=== PATIENT | male | born 1995 | race Caucasian/White ===

== ENCOUNTER 2017-12-23 11:19 | Emergency (ER) | payer OTHER ==
[2017-12-23 11:32] VITALS: TEMP 97.8
[2017-12-23] MEDS ORDERED: SODIUM CHLORIDE 0.9% 1,000 ML IV STA (11:51)
[2017-12-23] MEDS ORDERED: KETOROLAC 30 MG/ML 1 ML VIAL IVP STA (11:51)
--- NOTE | 2017-12-23 11:51 | ED ---
Abdominal Pain HPI - General Chief Complaint: Abdominal Pain Stated Complaint: abdominal pain Time Seen by Provider: 12/23/17 11:44 Source: patient, RN notes reviewed Mode of arrival: ambulatory Limitations: no limitations - History of Present Illness Initial Comments: 22-year-old male present emergency department with chief complaint of sudden onset of severe abdominal pain. Patient states that he was on a riding lawn more for approximately 90 minutes when he felt that his "stomach exploded". Patient states that the pain is mostly in his upper abdomen and is nonradiating. He denies any nausea, vomiting, diarrhea, constipation, chest pain or shortness breath. He denies any trauma. He states that he does not take any current medications he's had no prior GI disorders. Patient states that he feels better if he bent over is worse if he lays flat or stands up straight. Patient has normal drug ALLERGIES no prior abdominal surgeries. - Related Data Previous Rx's Medication Instructions Recorded Omeprazole 40 mg PO DAILY #14 capsule. 12/23/17 Allergies Allergy/AdvReac Type Severity Reaction Status Date / Time No Known Allergies Allergy Verified 12/23/17 11:28 Review of Systems ROS Statement: Those systems with pertinent positive or pertinent negative responses have been documented in the HPI. ROS Other: All systems not noted in ROS Statement are negative. Past Medical History Past Medical History: No Reported History History of Any Multi-Drug Resistant Organisms: None Reported Past Surgical History: No Surgical Hx Reported Past Psychological History: No Psychological Hx Reported Smoking Status: Current every day smoker Past Alcohol Use History: Daily Past Drug Use History: Marijuana General Exam Limitations: no limitations General appearance: alert, in no apparent distress Head exam: Present: atraumatic, normocephalic, normal inspection Respiratory exam: Present: normal lung sounds bilaterally. Absent: respiratory distress, wheezes, rales, rhonchi, stridor Cardiovascular Exam: Present: regular rate, normal rhythm, normal heart sounds. Absent: systolic murmur, diastolic murmur, rubs, gallop, clicks GI/Abdominal exam: Present: soft, tenderness (Moderate epigastric tenderness, upper abdominal tenderness), normal bowel sounds. Absent: distended, guarding, rebound, rigid Back exam: Absent: CVA tenderness (R), CVA tenderness (L) Skin exam: Present: warm, dry, intact, normal color. Absent: rash Course Vital Signs 12/23/17 12/23/17 11:28 13:15 Temperature 97.8 F Pulse Rate 86 66 Respiratory 18 20 Rate Blood Pressure 126/68 117/66 O2 Sat by Pulse 100 99 Oximetry Medical Decision Making - Medical Decision Making This is a 22-year-old male presented for abdominal pain which was sudden onset. Patient felt that his stomach is bloated patient had lab work, CT. He was given medications emergency room which have helped. Patient may have some underlying gastritis secondary to on take is advised to stop drinking. He'll be started on omeprazole 40 mg to help close follow-up. - Lab Data Result diagrams: 12/23/17 12:22 12/23/17 12:22 Lab Results 12/23/17 12/23/17 12/23/17 Range/Units 12:10 12:22 12:22 WBC 11.6 H (3.8-10.6) k/uL RBC 5.39 (4.30-5.90) m/uL Hgb 16.8 (13.0-17.5) gm/dL Hct 50.7 (39.0-53.0) % MCV 94.0 (80.0-100.0) fL MCH 31.2 (25.0-35.0) pg MCHC 33.2 (31.0-37.0) g/dL RDW 13.2 (11.5-15.5) % Plt Count 309 (150-450) k/uL Neutrophils % 68 % Lymphocytes % 20 % Monocytes % 8 % Eosinophils % 1 % Basophils % 1 % Neutrophils # 7.9 H (1.3-7.7) k/uL Lymphocytes # 2.3 (1.0-4.8) k/uL Monocytes # 0.9 (0-1.0) k/uL Eosinophils # 0.1 (0-0.7) k/uL Basophils # 0.1 (0-0.2) k/uL PT (9.0-12.0) sec INR (<1.2) APTT (22.0-30.0) sec Sodium 143 (137-145) mmol/L Potassium 4.2 (3.5-5.1) mmol/L Chloride 103 (98-107) mmol/L Carbon Dioxide 25 (22-30) mmol/L Anion Gap 15 mmol/L BUN 13 (9-20) mg/dL Creatinine 0.90 (0.66-1.25) mg/dL Est GFR (CKD-EPI)AfAm >90 (>60 ml/min/1.73 sqM) Est GFR (CKD-EPI)NonAf >90 (>60 ml/min/1.73 sqM) Glucose 91 (74-99) mg/dL Plasma Lactic Acid Lewis (0.7-2.0) mmol/L Calcium 10.4 H (8.4-10.2) mg/dL Total Bilirubin 0.7 (0.2-1.3) mg/dL AST 19 (17-59) U/L ALT 27 (21-72) U/L Alkaline Phosphatase 98 (38-126) U/L Total Protein 8.2 (6.3-8.2) g/dL Albumin 5.1 H (3.5-5.0) g/dL Amylase 56 (30-110) U/L Lipase 49 (23-300) U/L Urine Color Light Yellow Urine Appearance Clear (Clear) Urine pH 7.0 (5.0-8.0) Ur Specific [place] 1.008 (1.001-1.035) Urine Protein Negative (Negative) Urine Glucose (UA) Negative (Negative) Urine Ketones Negative (Negative) Urine Blood Negative (Negative) Urine Nitrite Negative (Negative) Urine Bilirubin Negative (Negative) Urine Urobilinogen <2.0 (<2.0) mg/dL Ur Leukocyte Esterase Negative (Negative) 12/23/17 12/23/17 Range/Units 12:22 12:22 WBC (3.8-10.6) k/uL RBC (4.30-5.90) m/uL Hgb (13.0-17.5) gm/dL Hct (39.0-53.0) % MCV (80.0-100.0) fL MCH (25.0-35.0) pg MCHC (31.0-37.0) g/dL RDW (11.5-15.5) % Plt Count (150-450) k/uL Neutrophils % % Lymphocytes % % Monocytes % % Eosinophils % % Basophils % % Neutrophils # (1.3-7.7) k/uL Lymphocytes # (1.0-4.8) k/uL Monocytes # (0-1.0) k/uL Eosinophils # (0-0.7) k/uL Basophils # (0-0.2) k/uL PT 12.0 (9.0-12.0) sec INR 1.3 H (<1.2) APTT 25.3 (22.0-30.0) sec Sodium (137-145) mmol/L Potassium (3.5-5.1) mmol/L Chloride (98-107) mmol/L Carbon Dioxide (22-30) mmol/L Anion Gap mmol/L BUN (9-20) mg/dL Creatinine (0.66-1.25) mg/dL Est GFR (CKD-EPI)AfAm (>60 ml/min/1.73 sqM) Est GFR (CKD-EPI)NonAf (>60 ml/min/1.73 sqM) Glucose (74-99) mg/dL Plasma Lactic Acid [place] 2.2 H* (0.7-2.0) mmol/L Calcium (8.4-10.2) mg/dL Total Bilirubin (0.2-1.3) mg/dL AST (17-59) U/L ALT (21-72) U/L Alkaline Phosphatase (38-126) U/L Total Protein (6.3-8.2) g/dL Albumin (3.5-5.0) g/dL Amylase (30-110) U/L Lipase (23-300) U/L Urine Color Urine Appearance (Clear) Urine pH (5.0-8.0) Ur Specific [place] (1.001-1.035) Urine Protein (Negative) Urine Glucose (UA) (Negative) Urine Ketones (Negative) Urine Blood (Negative) Urine Nitrite (Negative) Urine Bilirubin (Negative) Urine Urobilinogen (<2.0) mg/dL Ur Leukocyte Esterase (Negative) Disposition Clinical Impression: Abdominal pain, Gastritis Disposition: HOME SELF-CARE Condition: Stable Instructions: Gastritis (ED) Additional Instructions: Please return to the Emergency Department if symptoms worsen or any other concerns. Prescriptions: Omeprazole 40 mg PO DAILY #14 capsule.dr Is patient prescribed a controlled substance at d/c from ED?: No Referrals: Meaghan Avila DO [Primary Care Provider] - 1-2 days Time of Disposition: 13:32
[2017-12-23 12:39] LABS: Basophils # (A) 0.1 k/uL (0-0.2); Basophils % (A) 1 %; Eosinophils # (A) 0.1 k/uL (0-0.7); Eosinophils % (A) 1 %; HCT 50.7 % (39.0-53.0); HGB 16.8 gm/dL (13.0-17.5); Lymphocytes # (A) 2.3 k/uL (1.0-4.8); Lymphocytes % (A) 20 %; MCH 31.2 pg (25.0-35.0); MCHC 33.2 g/dL (31.0-37.0); Mean Platelet Volume 6.8; Monocytes # (A) 0.9 k/uL (0-1.0); Monocytes % (A) 8 %; Neutrophils # (A) 7.9 k/uL (1.3-7.7); Neutrophils % (A) 68 %; Platelet Count 309 k/uL (150-450); RBC 5.39 m/uL (4.30-5.90); RDW 13.2 % (11.5-15.5); WBC 11.6 k/uL (3.8-10.6)
[2017-12-23 12:39] LABS: Appearance,Urine Clear (Clear); Bilirubin,Urine Negative (Negative); Blood,Urine Negative (Negative); Color,Urine Light Yellow; Glucose,Urine (UA) Negative (Negative); Ketones,Urine Negative (Negative); Leukocyte Esterase,Urine Negative (Negative); Nitrite,Urine Negative (Negative); Protein,Urine Negative (Negative); Specific Gravity,Urine 1.008 (1.001-1.035); Urobilinogen,Urine <2.0 mg/dL (<2.0)
[2017-12-23 12:50] LABS: ALT 27 U/L (21-72); AST 19 U/L (17-59); Albumin 5.1 g/dL (3.5-5.0); Alkaline Phosphatase 98 U/L (38-126); Amylase 56 U/L (30-110); Anion Gap 15 mmol/L; Blood Urea Nitrogen 13 mg/dL (9-20); Calcium 10.4 mg/dL (8.4-10.2); Carbon Dioxide 25 mmol/L (22-30); Chloride 103 mmol/L (98-107); Glucose 91 mg/dL (74-99); Lipase 49 U/L (23-300); Potassium 4.2 mmol/L (3.5-5.1); Sodium 143 mmol/L (137-145); Total Bilirubin 0.7 mg/dL (0.2-1.3); Total Protein 8.2 g/dL (6.3-8.2)
[2017-12-23] MEDS ORDERED: SODIUM CHLORIDE 0.9% 1,000 ML IV ONE (12:52)
--- NOTE | 2017-12-23 13:09 | CT ---
EXAMINATION TYPE: CT abdomen pelvis w con DATE OF EXAM: 12/23/2017 REFERENCE: NONE HISTORY: abdominal pain HISTORY: Patient complains of epigastric pain. REFERENCE: NONE CT DLP: 311.1 mGy Automated exposure control for dose reduction was used. TECHNIQUE: Helical acquisition through the abdomen and pelvis was obtained following the oral ingesti on of without Oral Contrast and following intravenous administration of 100 mL of Isovue 300. The zarina a was reformatted in axial, coronal and sagittal projections. FINDINGS: The visualized portions of the lungs are clear. There is no pleural or pericardial fluid. The heart is not enlarged. Within the abdomen, the liver, spleen and gallbladder are normal. Both adrenal glands appear normal. Both kidneys demonstrate function and appear morphologically normal. The pancreas is unremarkable. There is no significant retroperitoneal, iliac or inguinal adenopathy. The bladder is unremarkable. Both large and small bowel appear normal. The appendix is not visualized with certainty. There is no free fluid and no free air identified. No osseous lesion is seen. IMPRESSION: 1. NO ACUTE INFLAMMATORY ABNORMALITY. 2. FAILURE TO VISUALIZE THE APPENDIX.
[2017-12-23 13:16] VITALS: BP 117/66; PULSE 66; RESP 20
[2017-12-23 13:17] LABS: INR 1.3 (<1.2); Partial Thromboplastin Time 25.3 sec (22.0-30.0)
[2017-12-23] MEDS ORDERED: ORPHENADRINE 30 MG/ML 2 ML VIAL IVP STA (13:19)
[2017-12-23] MEDS ORDERED: PANTOPRAZOLE 40 MG/10 ML VIAL IVP STA (13:30)
== END 2017-12-23 13:45 | disposition home or self-care (01) ==
LOC: EC 11:19
DX: K29.70 Gastritis, unspecified, without bleeding (principal); F17.200 Nicotine dependence, unspecified, uncomplicated
CPT/HCPCS: 36415; 80053; 82150; 83605; 83690; 85025; 85610; 85730; 81003; 74177; 99284; 96374; 96375 ×2; 96361 ×2; J2360; J1885; C9113; Q9967

== ENCOUNTER 2020-11-16 19:54 | Emergency (ER) | payer OTHER ==
[2020-11-16 20:08] VITALS: RESP 18
[2020-11-16] MEDS ORDERED: Acetaminophen-Codeine 300-30mg TAB PO STA (20:22)
--- NOTE | 2020-11-16 20:35 | ED ---
Male Urogenital HPI - General Chief complaint: Urogenital Stated complaint: Poss kidney stone Time Seen by Provider: 11/16/20 20:14 Source: patient, RN notes reviewed Mode of arrival: ambulatory Limitations: no limitations - History of Present Illness Initial comments: Patient is a 25-year-old male that presents to emergency department complaining of bilateral testicular pain more so on the left than the right. He notes that about a week ago he was having some low back pain that radiated towards the front of his abdomen. He notes that today the pain is more in his lower abdomen and groin. He denied any trauma injury strenuous lifting rough sexual intercourse or trauma to his testicles. He did note that there is a family history of kidney infections and kidney stones. He was in no apparent distress while sitting up in bed in exam interview. He noted that his left testicle is slightly more swollen than his right and that it was more painful to the touch on the backside. He noted that his pain was approximately a 6-7 out of 10 and is only requesting Tylenol threes for pain control at this time. He denied any dysuria hematuria chest pain shortness breath headache nausea vomiting diarrhea constipation fever fatigue chills. - Related Data Previous Rx's Medication Instructions Recorded Omeprazole 40 mg PO DAILY #14 capsule. 12/23/17 Allergies Allergy/AdvReac Type Severity Reaction Status Date / Time smith Allergy Anaphylaxis Verified 11/16/20 20:08 Review of Systems ROS Statement: Those systems with pertinent positive or pertinent negative responses have been documented in the HPI. ROS Other: All systems not noted in ROS Statement are negative. Past Medical History Past Medical History: No Reported History History of Any Multi-Drug Resistant Organisms: None Reported Past Surgical History: No Surgical Hx Reported Past Psychological History: No Psychological Hx Reported Smoking Status: Current every day smoker Past Alcohol Use History: Daily Past Drug Use History: Marijuana General Exam Limitations: no limitations General appearance: alert, in no apparent distress Head exam: Present: atraumatic, normocephalic, normal inspection Eye exam: Present: normal appearance, PERRL, EOMI. Absent: scleral icterus, conjunctival injection, periorbital swelling Neck exam: Present: normal inspection. Absent: tenderness, meningismus, lymphadenopathy Respiratory exam: Present: normal lung sounds bilaterally. Absent: respiratory distress, wheezes, rales, rhonchi, stridor Cardiovascular Exam: Present: regular rate, normal rhythm, normal heart sounds. Absent: systolic murmur, diastolic murmur, rubs, gallop, clicks GI/Abdominal exam: Present: soft, normal bowel sounds. Absent: distended, tenderness, guarding, rebound, rigid exam: Present: normal inspection, testicular tenderness (Left more so than the right), circumcision. Absent: urethral discharge, scrotal swelling, vertical testicular lie Extremities exam: Present: normal inspection, full ROM, normal capillary refill. Absent: tenderness, pedal edema, joint swelling, calf tenderness Neurological exam: Present: alert, oriented X3, CN II-XII intact Psychiatric exam: Present: normal affect, normal mood Skin exam: Present: warm, dry, intact, normal color. Absent: rash Course Vital Signs 11/16/20 20:05 Temperature 98 F Pulse Rate 75 Respiratory 18 Rate Blood Pressure 128/79 O2 Sat by Pulse 100 Oximetry Medical Decision Making - Medical Decision Making 5-year-old male complaining of bilateral testicle pain and lower abdominal pain. Labs, scrotal ultrasound, CT of the abdomen and pelvis, Tylenol [address] negative for any acute process. And a small right epididymal cyst Ultrasound showed bilateral hydroceles. Eyes discussed with Dr. Borden, patient can discharge home with follow-up primary care and urologist. - Lab Data Result diagrams: 11/16/20 20:42 11/16/20 20:42 Lab Results 11/16/20 11/16/20 11/16/20 Range/Units 20:42 20:42 20:42 WBC 10.5 (3.8-10.6) k/uL RBC 5.30 (4.30-5.90) m/uL Hgb 16.8 (13.0-17.5) gm/dL Hct 48.5 (39.0-53.0) % MCV 91.5 (80.0-100.0) fL MCH 31.8 (25.0-35.0) pg MCHC 34.7 (31.0-37.0) g/dL RDW 12.4 (11.5-15.5) % Plt Count 351 (150-450) k/uL MPV 7.5 Neutrophils % 60 % Lymphocytes % 26 % Monocytes % 8 % Eosinophils % 2 % Basophils % 1 % Neutrophils # 6.3 (1.3-7.7) k/uL Lymphocytes # 2.8 (1.0-4.8) k/uL Monocytes # 0.9 (0-1.0) k/uL Eosinophils # 0.2 (0-0.7) k/uL Basophils # 0.1 (0-0.2) k/uL Sodium 140 (137-145) mmol/L Potassium 4.4 (3.5-5.1) mmol/L Chloride 102 (98-107) mmol/L Carbon Dioxide 28 (22-30) mmol/L Anion Gap 10 mmol/L BUN 12 (9-20) mg/dL Creatinine 1.03 (0.66-1.25) mg/dL Est GFR (CKD-EPI)AfAm >90 (>60 ml/min/1.73 sqM) Est GFR (CKD-EPI)NonAf >90 (>60 ml/min/1.73 sqM) Glucose 84 (74-99) mg/dL Calcium 10.5 H (8.4-10.2) mg/dL Total Bilirubin 0.6 (0.2-1.3) mg/dL AST 29 (17-59) U/L ALT 19 (4-49) U/L Alkaline Phosphatase 93 (38-126) U/L Total Protein 8.0 (6.3-8.2) g/dL Albumin 5.2 H (3.5-5.0) g/dL Urine Color Light Yellow Urine Appearance Clear (Clear) Urine pH 8.0 (5.0-8.0) Ur Specific [place] 1.010 (1.001-1.035) Urine Protein Negative (Negative) Urine Glucose (UA) Negative (Negative) Urine Ketones Negative (Negative) Urine Blood Negative (Negative) Urine Nitrite Negative (Negative) Urine Bilirubin Negative (Negative) Urine Urobilinogen <2.0 (<2.0) mg/dL Ur Leukocyte Esterase Negative (Negative) - Radiology Data Radiology results: report reviewed, image reviewed CT of the abdomen and pelvis: Negative computed tomography scan of the abdomen and pelvis Skull ultrasound presents of hydroceles: Fluid collection medial superior to right testicle equals 3.5 cm and laterals. Left testicle equals 2.9 cm. There are bilateral hydroceles no testicular torsion or mass. Disposition Clinical Impression: Bilateral hydrocele Disposition: HOME SELF-CARE Condition: Stable Instructions (If sedation given, give patient instructions): Hydrocele (ED), Testicle Pain (ED) Additional Instructions: Please return to the Emergency Department if symptoms worsen or any other concerns. Follow-up with primary care and urologist in the next several days. Avoid any strenuous activity or activities that can cause excessive testicular trauma. Is patient prescribed a controlled substance at d/c from ED?: No Referrals: Meaghan Avila DO [Primary Care Provider] - 1-2 days Mike Douglas MD [STAFF PHYSICIAN] - 1-2 days Time of Disposition: 22:02
[2020-11-16 21:16] LABS: Basophils # (A) 0.1 k/uL (0-0.2); Basophils % (A) 1 %; Eosinophils # (A) 0.2 k/uL (0-0.7); Eosinophils % (A) 2 %; HCT 48.5 % (39.0-53.0); HGB 16.8 gm/dL (13.0-17.5); Lymphocytes # (A) 2.8 k/uL (1.0-4.8); Lymphocytes % (A) 26 %; MCH 31.8 pg (25.0-35.0); MCHC 34.7 g/dL (31.0-37.0); MCV 91.5 fL (80.0-100.0); Mean Platelet Volume 7.5; Monocytes # (A) 0.9 k/uL (0-1.0); Monocytes % (A) 8 %; Neutrophils # (A) 6.3 k/uL (1.3-7.7); Neutrophils % (A) 60 %; Platelet Count 351 k/uL (150-450); RDW 12.4 % (11.5-15.5); WBC 10.5 k/uL (3.8-10.6)
--- NOTE | 2020-11-16 21:17 | CT ---
EXAMINATION TYPE: CT abdomen pelvis w con DATE OF EXAM: 11/16/2020 COMPARISON: 12/23/2017 HISTORY: flank pain CT DLP: 538.9 mGycm Automated exposure control for dose reduction was used. CONTRAST: Performed with IV Contrast, patient injected with 100 mL of Isovue 300. Images obtained from the diaphragm to the floor the pelvis with IV contrast. Lung bases are clear. There is no pleural effusion. Heart size is normal. There is no pericardial eff usion. Liver spleen stomach pancreas gallbladder appear normal. The bile ducts are not dilated. There is no adrenal mass. Kidneys show satisfactory contrast opacification. There is no hydronephrosis. Bladder d istends smoothly. There is no inguinal hernia. There is no free fluid in the pelvis. There is no retroperitoneal adenopathy. There is no evidence of pelvic mass. There is no mesenteric edema. There is no ascites or free air. There is no bowel obstruction. Appendi x is partly seen and appears normal. The lumbar vertebra have normal alignment. Disc spaces are normal. There is no compression fracture. Bony pelvis is intact. The hip joints are intact. IMPRESSION: Negative CT scan abdomen and pelvis.
[2020-11-16 21:22] LABS: Appearance,Urine Clear (Clear); Bilirubin,Urine Negative (Negative); Blood,Urine Negative (Negative); Color,Urine Light Yellow; Glucose,Urine (UA) Negative (Negative); Ketones,Urine Negative (Negative); Leukocyte Esterase,Urine Negative (Negative); Nitrite,Urine Negative (Negative); Protein,Urine Negative (Negative); Urobilinogen,Urine <2.0 mg/dL (<2.0)
[2020-11-16 21:32] LABS: ALT 19 U/L (4-49); AST 29 U/L (17-59); African American GFR (CKD) >90 (>60 ml/min/1.73 sqM); Albumin 5.2 g/dL (3.5-5.0); Alkaline Phosphatase 93 U/L (38-126); Anion Gap 10 mmol/L; Blood Urea Nitrogen 12 mg/dL (9-20); Calcium 10.5 mg/dL (8.4-10.2); Carbon Dioxide 28 mmol/L (22-30); Chloride 102 mmol/L (98-107); Glucose 84 mg/dL (74-99); Non-African American GFR(CKD) >90 (>60 ml/min/1.73 sqM); Potassium 4.4 mmol/L (3.5-5.1); Sodium 140 mmol/L (137-145); Total Bilirubin 0.6 mg/dL (0.2-1.3)
--- NOTE | 2020-11-16 21:48 | US ---
EXAMINATION TYPE: US scrotum with doppler. Grayscale and color Doppler Duplex imaging performed of roman pineda scrotum. DATE OF EXAM: 11/16/2020 COMPARISON: NONE CLINICAL HISTORY: testicle pain. bilateral testicle pain. edema left testicle EXAM MEASUREMENTS: TESTICLES: Right Testicle: 4.6 x 2.5 x 3.1 cm Left Testicle: 4.5 x 2.4 x 3.3 cm EPIDIDYMIS HEAD: Right Epididymis: 0.8 cm Left Epididymis: 1.1 cm Doppler performed to assess for testicular vascularity; good bilateral color flow and waveforms are s een. There is no evidence of testicular torsion. Presence of hydroceles: yes, fluid collection medial/superior to right testicle = 3.5cm and lateral/ superior to left testicle = 2.9cm Presence of varicoceles: no *cystic area right epididymis = 0.2cm IMPRESSION: There are bilateral hydroceles. No testicular torsion or mass.
[2020-11-16 22:27] VITALS: BP 120/68; PULSE 72; TEMP 98.1
== END 2020-11-16 22:25 | disposition home or self-care (01) ==
LOC: EC 19:54
DX: N43.3 Hydrocele, unspecified (principal); M54.5 Low back pain; F17.200 Nicotine dependence, unspecified, uncomplicated; Z91.018 Allergy to other foods
CPT/HCPCS: 99284; 36415; 80053; 85025; 81003; 93975; 76870; 74177; Q9967

== ENCOUNTER 2021-02-03 12:04 | Emergency (ER) | payer OTHER ==
--- NOTE | 2021-02-03 13:43 | XR ---
EXAMINATION TYPE: XR chest 2V DATE OF EXAM: 02/03/2021 COMPARISON: NONE HISTORY: Chest and left-sided rib pain for one week. TECHNIQUE: Frontal and lateral views of the chest are obtained. FINDINGS: There is no suspicious focal air space opacity, pleural effusion, or pneumothorax seen. T he cardiac silhouette size is within normal limits. The osseous structures are intact. IMPRESSION: No acute cardiopulmonary process.
[2021-02-03 13:51] VITALS: RESP 18
--- NOTE | 2021-02-03 14:27 | ED ---
Chest Pain HPI - General Chief Complaint: Chest Pain Stated Complaint: lt sided chest injury Time Seen by Provider: 02/03/21 13:04 Source: patient Mode of arrival: ambulatory Limitations: no limitations - History of Present Illness Initial Comments: 25-year-old male presents to emergency department with a chief complaint of chest muscle pain. Patient reports about one week ago he was wrestling with his girlfriend when he felt a strain in the left side of the chest. Patient reports pain is worse whenever he is performing adduction left arm. Patient reports there is no associated ecchymosis to the region. He denies any shortness of breath. States the pain is worse whenever the region is palpated or adducting. Reports she took some Tylenol Motrin with no significant a permanent symptoms. - Related Data Previous Rx's Medication Instructions Recorded Omeprazole 40 mg PO DAILY #14 capsule. 12/23/17 Allergies Allergy/AdvReac Type Severity Reaction Status Date / Time smith Allergy Anaphylaxis Verified 02/03/21 13:02 Review of Systems ROS Statement: Those systems with pertinent positive or pertinent negative responses have been documented in the HPI. ROS Other: All systems not noted in ROS Statement are negative. Past Medical History Past Medical History: No Reported History History of Any Multi-Drug Resistant Organisms: None Reported Past Surgical History: No Surgical Hx Reported Past Psychological History: No Psychological Hx Reported Smoking Status: Current every day smoker Past Alcohol Use History: Daily Past Drug Use History: Marijuana General Exam Limitations: no limitations General appearance: alert, in no apparent distress Head exam: Present: atraumatic, normocephalic, normal inspection Eye exam: Present: normal appearance, PERRL, EOMI Pupils: Present: normal accommodation ENT exam: Present: normal exam, normal oropharynx, mucous membranes moist Neck exam: Present: normal inspection, full ROM. Absent: tenderness, lymphadenopathy Respiratory exam: Present: normal lung sounds bilaterally, chest wall tenderness (reproducible left-sided chest wall tenderness. No obvious sign suggestive pec muscle tear.). Absent: respiratory distress, wheezes, rales, rhonchi, stridor, accessory muscle use Cardiovascular Exam: Present: regular rate, normal rhythm, normal heart sounds. Absent: systolic murmur Extremities exam: Present: normal inspection, full ROM Back exam: Present: normal inspection, full ROM Neurological exam: Present: alert, oriented X3 Psychiatric exam: Present: normal affect, normal mood Skin exam: Present: warm, dry, intact, normal color Course Vital Signs 02/03/21 02/03/21 02/03/21 12:59 13:02 14:39 Temperature 97.9 F 98.7 F Pulse Rate 87 79 Respiratory 17 18 18 Rate Blood Pressure 118/74 132/78 O2 Sat by Pulse 99 98 Oximetry Chest Pain MDM - MDM 25-year-old male presenting to emergency Department with a chief complaint of chest muscle pain. On physical examination. No signs that would suggest a pectoralis muscle tear. There is no signs of ecchymosis. No signs of swelling in the left side of the chest. However, he does have pain whenever performing adduction. Chest x-ray is unremarkable. I suspect this is muscle strain rather than actual pectoralis muscle tear. They will follow with the primary care physician. Return parameters were thoroughly discussed with patient is understanding and agreeable. Disposition Clinical Impression: Chest wall muscle strain Disposition: HOME SELF-CARE Condition: Stable Instructions (If sedation given, give patient instructions): Muscle Strain (DC) Additional Instructions: Apply warm compresses. Tylenol or Motrin for pain. Return to emergency department if symptoms worsen. Is patient prescribed a controlled substance at d/c from ED?: No Referrals: Meaghan Avila DO [Primary Care Provider] - 1-2 days Time of Disposition: 14:27
[2021-02-03 14:40] VITALS: BP 132/78; PULSE 79; TEMP 98.7
== END 2021-02-03 14:40 | disposition home or self-care (01) ==
LOC: EC 12:04
DX: S29.011A Strain of muscle and tendon of front wall of thorax, initial encounter (principal); F17.200 Nicotine dependence, unspecified, uncomplicated; Z91.018 Allergy to other foods; W50.0XXA Accidental hit or strike by another person, initial encounter; Y92.009 Unspecified place in unspecified non-institutional (private) residence as the place of occurrence of the external cause; Y93.72 Activity, wrestling
CPT/HCPCS: 71046; 99283; 99284

== ENCOUNTER 2021-12-19 18:51 | Emergency (ER) | payer OTHER ==
[2021-12-19] MEDS ORDERED: LIDOCAINE 1%-EPI 1:100,000 20 ML VIAL SQ STA (19:11)
--- NOTE | 2021-12-19 20:10 | XR ---
EXAMINATION TYPE: XR foot complete LT DATE OF EXAM: 12/19/2021 COMPARISON: NONE HISTORY: Possible foreign body TECHNIQUE: 2 views FINDINGS: Metatarsals are intact. I see no fracture nor dislocation. Joint spaces are normal. IMPRESSION: Negative left foot exam. No fracture.
[2021-12-19] MEDS ORDERED: IBUPROFEN 800 MG TAB PO STA (20:26)
--- NOTE | 2021-12-19 20:30 | ED ---
Wound/Laceration HPI - General Chief Complaint: Wound/Laceration Stated Complaint: lt foot injury Time Seen by Provider: 12/19/21 18:55 Source: patient Mode of arrival: ambulatory Limitations: no limitations - History of Present Illness Initial Comments: Patient is a 26-year-old male who presents for evaluation of weed tree injury. Patient states he was using his weed whacker when something flew out of bed and hit his left outer ankle. Patient states the incident happened around 4 PM and has continued to bleed since despite applying pressure. Denies blood thinner use. States last tetanus was 2 years ago. - Related Data Previous Rx's Medication Instructions Recorded Omeprazole 40 mg PO DAILY #14 capsule. 12/23/17 Ibuprofen [Motrin] 800 mg PO Q6HR #30 tab 12/19/21 Allergies Allergy/AdvReac Type Severity Reaction Status Date / Time smith Allergy Anaphylaxis Verified 12/19/21 18:54 Review of Systems ROS Statement: Those systems with pertinent positive or pertinent negative responses have been documented in the HPI. ROS Other: All systems not noted in ROS Statement are negative. Past Medical History Past Medical History: No Reported History History of Any Multi-Drug Resistant Organisms: None Reported Past Surgical History: No Surgical Hx Reported Past Psychological History: No Psychological Hx Reported Smoking Status: Current every day smoker Past Alcohol Use History: Daily Past Drug Use History: Marijuana General Exam Limitations: no limitations General appearance: alert Respiratory exam: Present: normal lung sounds bilaterally. Absent: respiratory distress, wheezes, rales, rhonchi, stridor Cardiovascular Exam: Present: regular rate, normal rhythm, normal heart sounds. Absent: systolic murmur, diastolic murmur, rubs, gallop, clicks Extremities exam: Present: other (0.5 cm laceration inferior to left lateral ankle ) Neurological exam: Present: alert, oriented X3, CN II-XII intact Psychiatric exam: Present: normal affect, normal mood Skin exam: Present: warm, dry, intact, normal color. Absent: rash Course Vital Signs 12/19/21 12/19/21 18:52 20:54 Temperature 98 F 98.1 F Pulse Rate 90 79 Respiratory 16 20 Rate Blood Pressure 118/77 89/65 O2 Sat by Pulse 99 100 Oximetry Procedures - Laceration Laceration #1 Consent Obtained: verbal consent Indication: laceration Site: foot (left ) Description: irregular Depth: simple, single layer Anesthetic Used: lidocaine 1%, with epi Anesthesia Technique: local infiltration Pre-repair: wound explored, irrigated extensively, deep structures intact Size of Sutures: 4-0 Technique: simple, interrupted Patient Tolerated Procedure: well, no complications Medical Decision Making - Medical Decision Making This is a 26-year-old male who presents for evaluation of laceration. Thorough history and examination were performed. There is a very small laceration anterior to the left lateral ankle approximately 0.5 cm. After 20 minutes of direct pressure in the emergency department the laceration continue to bleed. left foot x-ray was obtained to rule out foreign body which is negative for acute process. The wound was irrigated thoroughly. It was well approximated with 2 sutures which resolved the bleeding. Patient tolerated procedure well without complication. Tetanus up-to-date is not indicated. Wound care education provided in detail. Patient to return for suture removal in 12-14 days. Return parameters discussed. Patient verbalizes understanding and is agreeable to this plan. Dr. Gaviria is my attending. Disposition Clinical Impression: Laceration Disposition: HOME SELF-CARE Condition: Good Instructions (If sedation given, give patient instructions): Care For Your Stitches (ED), Laceration (ED) Additional Instructions: Take medication as directed. Keep wounds clean, dry, and uncovered. Follow-up with primary care provider in one to 2 days. Return for suture removal in 12-14 days. Report back to the emergency department if you experience new, concerning, or worsening symptoms. Prescriptions: Ibuprofen [Motrin] 800 mg PO Q6HR #30 tab Is patient prescribed a controlled substance at d/c from ED?: No Referrals: Meaghan Avila DO [Primary Care Provider] - 1-2 days Time of Disposition: 20:30
[2021-12-19] MEDS ORDERED: HYDROcodone/APAP 7.5-325MG 1 EACH TAB PO ONE (20:38)
[2021-12-19] MEDS ORDERED: ACET/COD 300 MG/30 MG STARTER PACK 6 TAB BTL PO STA (20:39)
[2021-12-19 20:54] VITALS: BP 89/65; PULSE 79; RESP 20; TEMP 98.1
== END 2021-12-19 20:59 | disposition home or self-care (01) ==
LOC: EC 18:51
DX: S91.012A Laceration without foreign body, left ankle, initial encounter (principal); F17.200 Nicotine dependence, unspecified, uncomplicated; Z91.018 Allergy to other foods; W27.1XXA Contact with garden tool, initial encounter; Y93.H2 Activity, gardening and landscaping
CPT/HCPCS: 12001; 99283

== ENCOUNTER → 2022-02-16 | Outpatient (CLI) | payer OTHER ==
--- NOTE | 2022-02-17 14:12 | XR ---
EXAMINATION TYPE: XR ribs LT w pa chest xray DATE OF EXAM: 02/16/2022 COMPARISON: NONE HISTORY: Pain TECHNIQUE: PA view of the chest and 4 views of the left ribs submitted FINDINGS: Heart size normal. Lungs are clear. There is no sizable pneumothorax. No pleural effusion. Rib cage intact. IMPRESSION: No acute displaced rib fracture.
== END | disposition home or self-care (01) ==
LOC: RADXRYALE 13:54
PROVIDERS: ATTEND Family Medicine
DX: R07.81 Pleurodynia (principal)

== ENCOUNTER → 2022-06-09 | Outpatient (CLI) | payer OTHER ==
[2022-06-09 18:47] LABS: Eosinophils # (A) 0.19 X 10*3/uL (0.04-0.35); HCT 49.5 % (39.6-50.0); HGB 16.3 g/dL (13.0-17.0); Immature Grans, Automated 0.2 %; Lymphocytes # (A) 2.88 X 10*3/uL (0.90-5.00); Lymphocytes % (A) 29.6 %; MCH 30.8 pg (27.0-32.0); MCHC 32.9 g/dL (32.0-37.0); MCV 93.6 fL (80.0-97.0); Mean Platelet Volume 10.1 fL (9.5-12.2); Monocytes # (A) 0.64 X 10*3/uL (0.20-1.00); Monocytes % (A) 6.6 %; NRBC Per 100 WBC 0 /100 WBCS (0.0-0.0); Neutrophils % (A) 60.6 %; Platelet Count 325 X 10*3/uL (140-440); RBC 5.29 X 10*6/uL (4.40-5.60); RDW 12.6 % (11.5-14.5); WBC 9.73 X 10*3/uL (4.50-10.00)
[2022-06-09 19:00] LABS: African American GFR (CKD) 96.8 (60.0-200.0); Non-African American GFR(CKD) 83.5 (60.0-200.0)
[2022-06-09 19:06] LABS: Hepatitis B Surface AB- Quant 3.7 mIU/mL; Hepatitis B Surface Antibody Nonreactive (Nonreactive)
[2022-06-09 19:14] LABS: Hepatitis B Surface Antigen Nonreactive (Nonreactive); Hepatitis C IgG Antibody Nonreactive (Nonreactive)
== END | disposition home or self-care (01) ==
LOC: LABWHC1 13:46
PROVIDERS: ATTEND Dermatology
DX: L40.0 Psoriasis vulgaris (principal)
CPT/HCPCS: 36415; 82565; 84450; 84460; 85025; 86480; 86704; 86706; 86803; 87340

== ENCOUNTER → 2022-11-03 | Outpatient (CLI) | payer OTHER ==
[2022-11-03 20:51] LABS: Basophils # (A) 0.07 X 10*3/uL (0.00-0.10); Basophils % (A) 0.9 %; Eosinophils # (A) 0.15 X 10*3/uL (0.04-0.35); Eosinophils % (A) 1.8 %; HCT 48.2 % (39.6-50.0); HGB 15.5 g/dL (13.0-17.0); Immature Grans, Automated 0.2 %; Lymphocytes % (A) 33.2 %; MCH 30.9 pg (27.0-32.0); MCHC 32.2 g/dL (32.0-37.0); Mean Platelet Volume 10.3 fL (9.5-12.2); Monocytes # (A) 0.55 X 10*3/uL (0.20-1.00); Monocytes % (A) 6.8 %; NRBC Per 100 WBC 0 /100 WBCS (0.0-0.0); Neutrophils # (A) 4.65 X 10*3/uL (1.80-7.70); Neutrophils % (A) 57.1 %; Platelet Count 346 X 10*3/uL (140-440); RBC 5.02 X 10*6/uL (4.40-5.60); RDW 12.9 % (11.5-14.5); WBC 8.14 X 10*3/uL (4.50-10.00)
[2022-11-03 21:14] LABS: African American GFR (CKD) 104.6 (60.0-200.0); Albumin 4.7 g/dL (3.8-4.9); Albumin/Globulin Ratio 1.88 (1.60-3.17); Anion Gap 11.9 mmol/L (10.00-18.00); BUN/Creat Ratio 11.82 Ratio (12.00-20.00); Carbon Dioxide 25.1 mmol/L (20.0-27.5); Globulin 2.5 g/dL (1.6-3.3); Non-African American GFR(CKD) 90.2 (60.0-200.0); Potassium 5.3 mmol/L (3.5-5.5); Total Bilirubin 0.4 mg/dL (0.30-1.20); Total Protein 7.2 g/dL (6.2-8.2)
== END | disposition home or self-care (01) ==
LOC: LABWHC1 10:44
PROVIDERS: ATTEND Student in an Organized Health Care Education/Training Program
DX: L40.0 Psoriasis vulgaris (principal); L40.8 Other psoriasis
CPT/HCPCS: 36415; 80053; 85025

== ENCOUNTER → 2023-07-06 | Outpatient (CLI) | payer OTHER ==
[2023-07-06 18:20] LABS: Basophils # (A) 0.08 X 10*3/uL (0.00-0.10); Basophils % (A) 0.9 %; Eosinophils # (A) 0.15 X 10*3/uL (0.04-0.35); Eosinophils % (A) 1.6 %; HCT 47.1 % (39.6-50.0); HGB 15.7 g/dL (13.0-17.0); Lymphocytes # (A) 3.05 X 10*3/uL (0.90-5.00); MCH 30.7 pg (27.0-32.0); MCHC 33.3 g/dL (32.0-37.0); Mean Platelet Volume 9.9 FL (9.5-12.2); Monocytes % (A) 7.6 %; NRBC Per 100 WBC 0 X 10*3/uL (0.00-0.01); Neutrophils # (A) 5.24 X 10*3/uL (1.80-7.70); Neutrophils % (A) 56.7 %; Platelet Count 289 X 10*3/uL (140-440); RBC 5.12 X 10*6/uL (4.40-5.60); RDW 12.7 % (11.5-14.5); WBC 9.24 X 10*3/uL (4.50-10.00)
[2023-07-06 18:32] LABS: ALT 20 U/L (10-49); AST 16 U/L (14-35)
== END | disposition home or self-care (01) ==
LOC: LABWHC1 16:07
PROVIDERS: ATTEND Dermatology MOHS-Micrographic Surgery
DX: L40.0 Psoriasis vulgaris (principal)
CPT/HCPCS: 36415; 82565; 84450; 84460; 85025; 86480

== ENCOUNTER → 2023-08-31 | Outpatient (CLI) | payer OTHER ==
--- NOTE | 2023-09-02 16:51 | US ---
EXAMINATION TYPE: US st tissue head/neck DATE OF EXAM: 08/31/2023 COMPARISON: NONE CLINICAL INDICATION: Male, 27 years old with history of R22.9 LOCALIZED SWELLING, MASS AND LUMP, UNSP D48.5; Patient has palpable area underneath left ear. Says that he has felt it since December but that it has become slightly painful and bigger. No sickness or other symptoms mentioned. Vector Control Assistant notes: Scanned palpable area of concern (inferior to left ear). FINDINGS: Vector Control Assistant notes: There is a 2.8 x 0.9 x 1.0cm hypoechoic lymph node seen with a 0.5cm cortex seen a t area of palp below the left ear. The right side was scanned for comparison, and a smaller 1.3cm lym ph node was seen. IMPRESSION: Enlarged lymph node measuring 2.8 x 1.0 x 0.9 cm below the left ear at the patient's palpable area of concern. Likely reactive/post inflammatory. This can be followed clinically. Rescan if progressive e nlargement or suspicious clinical features developed.
== END | disposition home or self-care (01) ==
LOC: RADUSWWP 14:43
PROVIDERS: ATTEND Family Medicine
DX: R59.0 Localized enlarged lymph nodes (principal); D48.5 Neoplasm of uncertain behavior of skin
CPT/HCPCS: 76536

== ENCOUNTER 2023-09-05 23:59 | Emergency (ER) | payer OTHER ==
--- NOTE | 2023-09-06 00:51 | XR ---
EXAM: XR Lumbosacral Spine, 2 or 3 Views CLINICAL HISTORY: ITS.REASON XR Reason: Lower back pain TECHNIQUE: Frontal and lateral views of the lumbar spine and sacrum. COMPARISON: No relevant prior studies available. FINDINGS: Vertebrae: No acute fracture. Normal sagittal alignment. Minimal levoscoliosis Disc spaces: No significant narrowing. Soft tissues: Unremarkable. IMPRESSION: No acute findings.
[2023-09-06 00:52] VITALS: RESP 18; TEMP 98
--- NOTE | 2023-09-06 01:26 | ED ---
Back Pain HPI - General Chief Complaint: Back Pain/Injury Stated Complaint: lower back pain Time Seen by Provider: 09/06/23 00:29 Source: patient Limitations: no limitations - History of Present Illness Initial Comments: 27-year-old male with a past medical history significant for psoriasis on Humira presenting to the ED with a chief complaint of back pain. Patient states over the past few days has had pain of his back. States it was intermittent in nature but now has become constant. Does also note some difficulties with urination. States he has the urge to urinate. Denies pain. Denies hermaturia. Patient is a vague historian. No recent injury or trauma. No changes in bowel habits. No fever or chills. No concerns for STDs. No other complaints at this time. - Related Data Previous Rx's Medication Instructions Recorded Omeprazole 40 mg PO DAILY #14 capsule. 12/23/17 Ibuprofen [Motrin] 800 mg PO Q6HR #30 tab 12/19/21 Sulfamethox-Tmp 800-160Mg [Bactrim 1 each PO Q12HR 14 Days #28 tab 09/06/23 Ds] Allergies Allergy/AdvReac Type Severity Reaction Status Date / Time smith Allergy Anaphylaxis Verified 09/06/23 00:11 Review of Systems ROS Statement: Those systems with pertinent positive or pertinent negative responses have been documented in the HPI. ROS Other: All systems not noted in ROS Statement are negative. Past Medical History Past Medical History: No Reported History History of Any Multi-Drug Resistant Organisms: None Reported Past Surgical History: No Surgical Hx Reported Past Psychological History: No Psychological Hx Reported Smoking Status: Current every day smoker, Vaper Past Alcohol Use History: Daily Past Drug Use History: Marijuana General Exam Limitations: no limitations General appearance: alert, in no apparent distress Eye exam: Present: normal appearance Neck exam: Present: normal inspection Respiratory exam: Present: normal lung sounds bilaterally Cardiovascular Exam: Present: regular rate GI/Abdominal exam: Present: tenderness (Tenderness to palpation of the abdomen diffusely. Flank tenderness to percussion bilaterally. No rebound guarding or rigidity. There is overlying lidocaine patches) Neurological exam: Present: alert, oriented X3 Skin exam: Present: warm, dry Course Vital Signs 09/06/23 00:07 Temperature 98 F Pulse Rate 72 Respiratory 18 Rate Blood Pressure 107/61 O2 Sat by Pulse 98 Oximetry Medical Decision Making - Medical Decision Making Was pt. sent in by a medical professional or institution ([facility], ENERGY SCHEDULER, urgent care, hospital, or [facility]...) When possible be specific @ -No Did you speak to anyone other than the patient for history (EMS, parent, family, police, friend...)? What history was obtained from this source @ -No Did you review nursing and triage notes (agree or disagree)? Why? @ -I reviewed and agree with nursing and triage notes Were old charts reviewed (outside hosp., previous admission, EMS record, old EKG, old radiological studies, urgent care reports/EKG's, [facility] records)? Report findings @ -No old charts were reviewed Differential Diagnosis (chest pain, altered mental status, abdominal pain women, abdominal pain men, vaginal bleeding, weakness, fever, dyspnea, syncope, headache, dizziness, GI bleed, back pain, seizure, CVA, palpatations, mental health, musculoskeletal)? @ -Differential Abdominal Pain Men: Appendicitis, cholecystitis, diverticulosis, ischemic bowel, pancreatitis, hepatitis, UTI, gastroenteritis, AAA, incarcerated hernia, bowel obstruction, constipation, inflammatory bowel, hepatitis, peptic ulcer disease, splenic infarction, perforated viscus, testicular torsion, this is not meant to be an all-inclusive list EKG interpreted by me (3pts min.). @ -As above X-rays interpreted by me (1pt min.). @ -None done CT interpreted by me (1pt min.). @ -CT abdomen pelvis interpreted me which revealed no evidence of acute abdominal finding. Patchy opacities in left lung base seen as well. U/S interpreted by me (1pt. min.). @ -None done What testing was considered but not performed or refused? (CT, X-rays, U/S, labs)? Why? @ -None What meds were considered but not given or refused? Why? @ -None Did you discuss the management of the patient with other professionals (professionals i.e. [facility], ENERGY SCHEDULER, lab, RT, psych nurse, director social service, summer school coordinator, teacher, legal officer, case worker)? Give summary @ -No Was smoking cessation discussed for >3mins.? @ -No Was critical care preformed (if so, how long)? @ -No Were there social determinants of health that impacted care today? How? (Homelessness, low income, unemployed, alcoholism, drug addiction, transportation, low edu. Level, literacy, decrease access to med. care, retirement, rehab)? @ -No Was there de-escalation of care discussed even if they declined (Discuss DNR or withdrawal of care, Hospice)? DNR status @ -No What co-morbidities impacted this encounter? (DM, HTN, Smoking, COPD, CAD, Cancer, CVA, ARF, Chemo, Hep., AIDS, mental health diagnosis, sleep apnea, morbid obesity)? @ -Tobacco smoker Was patient admitted / discharged? Hospital course, mention meds given and route, prescriptions, significant lab abnormalities, going to OR and other pertinent info. @ -Discharge 27-year-old male presented to the ED with a chief complaint of back pain with some associated urinary frequency. CT abdomen pelvis revealed no evidence of acute finding. There was also note of patchy opacities in left lung base. Patient has no complaints of cough or shortness of breath at this time. L aboratory studies reviewed. CBC does show an elevated white blood cell count 16, elevated neutrophils at 12.4. Chemistry panel largely unremarkable. Amylase elevated at 135, lipase at 482. Urine does show moderate blood, moderate leukocyte Estrace, 43 red blood cells, 86 white blood cells, occasional white blood cell clumps, and many bacteria. I did speak to patient in private without his mother or his girlfriend in the room and he reports no concerns with STDs at this time. Urine culture was obtained. Patient provided 1 g of ceftriaxone here in the ED and discharged home with prescription for Bactrim. Advise close follow-up with his PCP. Discussed strict return precautions with patient who verbalized agreement. Undiagnosed new problem with uncertain prognosis? @ -No Drug Therapy requiring intensive monitoring for toxicity (Heparin, Nitro, Insulin, Cardizem)? @ -No Were any procedures done? @ -No Diagnosis/symptom? @ -Pyelonephritis Acute, or Chronic, or Acute on Chronic? @ -Acute Uncomplicated (without systemic symptoms) or Complicated (systemic symptoms)? @ -Uncomplicated Side effects of treatment? @ -No Exacerbation, Progression, or Severe Exacerbation? @ -No Poses a threat to life or bodily function? How? (Chest pain, [place], [place], pneumonia, PE, COPD, DKA, ARF, appy, cholecystitis, CVA, Diverticulitis, Homicidal, Suicidal, threat to staff... and all critical care pts) @ -Unlikely - Lab Data Result diagrams: 09/06/23 01:39 09/06/23 01:39 Lab Results 09/06/23 09/06/23 09/06/23 Range/Units 01:39 01:39 02:36 WBC 16.0 H (3.8-10.6) k/uL RBC 4.59 (4.30-5.90) m/uL Hgb 14.5 (13.0-17.5) gm/dL Hct 42.5 (39.0-53.0) % MCV 92.6 (80.0-100.0) fL MCH 31.7 (25.0-35.0) pg MCHC 34.2 (31.0-37.0) g/dL RDW 12.7 (11.5-15.5) % Plt Count 251 (150-450) k/uL MPV 8.1 Neutrophils % 78 % Lymphocytes % 12 % Monocytes % 6 % Eosinophils % 1 % Basophils % 0 % Neutrophils # 12.4 H (1.3-7.7) k/uL Lymphocytes # 1.9 (1.0-4.8) k/uL Monocytes # 1.0 (0-1.0) k/uL Eosinophils # 0.2 (0-0.7) k/uL Basophils # 0.1 (0-0.2) k/uL Sodium 139 (137-145) mmol/L Potassium 4.0 (3.5-5.1) mmol/L Chloride 107 (98-107) mmol/L Carbon Dioxide 21 L (22-30) mmol/L Anion Gap 11 mmol/L BUN 13 (9-20) mg/dL Creatinine 0.90 (0.66-1.25) mg/dL Est GFR (CKD-EPI)AfAm >90 (>60 ml/min/1.73 sqM) Est GFR (CKD-EPI)NonAf >90 (>60 ml/min/1.73 sqM) Glucose 119 H (74-99) mg/dL Calcium 9.5 (8.4-10.2) mg/dL Total Bilirubin 0.5 (0.2-1.3) mg/dL AST 20 (17-59) U/L ALT 14 (4-49) U/L Alkaline Phosphatase 86 (38-126) U/L Total Protein 7.1 (6.3-8.2) g/dL Albumin 4.1 (3.5-5.0) g/dL Amylase 135 H (30-110) U/L Lipase 482 H (23-300) U/L Urine Color Yellow Urine Appearance Cloudy (Clear) Urine pH 7.5 (5.0-8.0) Ur Specific [place] 1.015 (1.001-1.035) Urine Protein 1+ H (Negative) Urine Glucose (UA) Negative (Negative) Urine Ketones Negative (Negative) Urine Blood Moderate H (Negative) Urine Nitrite Positive (Negative) Urine Bilirubin Negative (Negative) Urine Urobilinogen <2.0 (<2.0) mg/dL Ur Leukocyte Esterase Moderate H (Negative) Urine RBC 43 H (0-5) /hpf Urine WBC 86 H (0-5) /hpf Urine WBC Clumps Occasional H (None) /hpf Ur Squamous Epith Cells <1 (0-4) /hpf Amorphous Sediment Few H (None) /hpf Urine Bacteria Many H (None) /hpf Hyaline Casts 4 H (0-2) /lpf Urine Mucus Few H (None) /hpf Disposition Clinical Impression: Pyelonephritis Disposition: HOME SELF-CARE Condition: Good Instructions (If sedation given, give patient instructions): Kidney Infection (ED) Additional Instructions: Please return to the Emergency Department if symptoms worsen or any other concerns. Please follow-up with your primary care provider. Prescriptions: Sulfamethox-Tmp 800-160Mg [Bactrim Ds] 1 each PO Q12HR 14 Days #28 tab Is patient prescribed a controlled substance at d/c from ED?: No Referrals: Meaghan Avila DO [Primary Care Provider] - 1-2 days Time of Disposition: 03:34
[2023-09-06] MEDS: SODIUM CHLORIDE 0.9% 1,000 ML IV STA (01:42)
[2023-09-06] MEDS: KETOROLAC 15 MG/ML 1 ML VIAL IVP STA (01:43)
[2023-09-06] MEDS: ONDANSETRON 4 MG/2 ML VIAL IVP STA (01:43)
[2023-09-06 01:45] LABS: Basophils # (A) 0.1 k/uL (0-0.2); Basophils % (A) 0 %; Eosinophils # (A) 0.2 k/uL (0-0.7); Eosinophils % (A) 1 %; HCT 42.5 % (39.0-53.0); HGB 14.5 gm/dL (13.0-17.5); Lymphocytes # (A) 1.9 k/uL (1.0-4.8); Lymphocytes % (A) 12 %; MCH 31.7 pg (25.0-35.0); MCHC 34.2 g/dL (31.0-37.0); MCV 92.6 fL (80.0-100.0); Mean Platelet Volume 8.1; Monocytes % (A) 6 %; Neutrophils # (A) 12.4 k/uL (1.3-7.7); Neutrophils % (A) 78 %; Platelet Count 251 k/uL (150-450); RBC 4.59 m/uL (4.30-5.90); RDW 12.7 % (11.5-15.5)
[2023-09-06] MEDS: ACETAMINOPHEN TAB 500 MG TAB PO STA (02:06)
[2023-09-06 02:12] LABS: ALT 14 U/L (4-49); AST 20 U/L (17-59); African American GFR (CKD) >90 (>60 ml/min/1.73 sqM); Albumin 4.1 g/dL (3.5-5.0); Alkaline Phosphatase 86 U/L (38-126); Amylase 135 U/L (30-110); Blood Urea Nitrogen 13 mg/dL (9-20); Calcium 9.5 mg/dL (8.4-10.2); Carbon Dioxide 21 mmol/L (22-30); Glucose 119 mg/dL (74-99); Lipase 482 U/L (23-300); Non-African American GFR(CKD) >90 (>60 ml/min/1.73 sqM); Sodium 139 mmol/L (137-145); Total Bilirubin 0.5 mg/dL (0.2-1.3); Total Protein 7.1 g/dL (6.3-8.2)
[2023-09-06 02:37] LABS: Chloride 107 mmol/L (98-107)
[2023-09-06 02:38] LABS: Anion Gap 11 mmol/L
[2023-09-06 03:03] LABS: Amorphous Sediment,Urine Few /hpf; Appearance,Urine Cloudy (Clear); Bacteria,Urine Many /hpf; Bilirubin,Urine Negative (Negative); Blood,Urine Moderate (Negative); Color,Urine Yellow; Glucose,Urine (UA) Negative (Negative); Hyaline Casts,Urine 4 /lpf (0-2); Ketones,Urine Negative (Negative); Leukocyte Esterase,Urine Moderate (Negative); Mucus,Urine Few /hpf; Nitrite,Urine Positive (Negative); PH, Urine 7.5 (5.0-8.0); Protein,Urine 1+ (Negative); RBC,Urine 43 /hpf (0-5); Specific Gravity,Urine 1.015 (1.001-1.035); Squamous Epithelial Cell,Urine <1 /hpf (0-4); Urobilinogen,Urine <2.0 mg/dL (<2.0); WBC,Urine 86 /hpf (0-5)
--- NOTE | 2023-09-06 03:14 | CT ---
EXAM: CT Abdomen and Pelvis Without Intravenous Contrast CLINICAL HISTORY: ITS.REASON CT Reason: Flank pain dysuria TECHNIQUE: Axial computed tomography images of the abdomen and pelvis without intravenous contrast. CTDI is 5.9 mGy and DLP is 361.8 mGy-cm. This CT exam was performed using one or more of the following dose reduction techniques: automated exposure control, adjustment of the mA and/or kV according to patient size, and/or use of iterative reconstruction technique. COMPARISON: 11/16/2020 FINDINGS: Lung bases: Patchy centrilobular opacities in the central left lung base. ABDOMEN: Liver: Unremarkable. Gallbladder and bile ducts: Unremarkable. No calcified stones. No ductal dilation. Pancreas: Unremarkable. No ductal dilation. Spleen: Unremarkable. No splenomegaly. Adrenals: Unremarkable. No mass. Kidneys and ureters: Unremarkable. No obstructing stones. No hydronephrosis. Stomach and bowel: Unremarkable. No obstruction. No mucosal thickening. PELVIS: Appendix: No findings to suggest acute appendicitis. Bladder: Unremarkable. No stones. Reproductive: Unremarkable as visualized. ABDOMEN and PELVIS: Intraperitoneal space: Unremarkable. No free air. No significant fluid collection. Bones/joints: No acute fracture. No dislocation. Soft tissues: Unremarkable. Vasculature: Unremarkable. No abdominal aortic aneurysm. Lymph nodes: Unremarkable. No enlarged lymph nodes. IMPRESSION: No acute abdominal or pelvic process. Patchy centrilobular opacities in the central left lung base.
[2023-09-06] MEDS: cefTRIAXone IN SWFI 1,000 MG/10 ML SYRINGE IVP STA (03:37)
[2023-09-06 03:45] VITALS: BP 92/56; PULSE 57
== END 2023-09-06 03:55 | disposition home or self-care (01) ==
LOC: EC 23:59
DX: N12 Tubulo-interstitial nephritis, not specified as acute or chronic (principal); F17.290 Nicotine dependence, other tobacco product, uncomplicated; F12.90 Cannabis use, unspecified, uncomplicated
CPT/HCPCS: 36415; 80053; 82150; 83690; 85025; 81001; 87086; 72100; 74176; 99284; 96374; 96375 ×2; 96361; J2405; J0696; J1885

== ENCOUNTER 2023-09-09 22:31 | Inpatient (IN) | payer OTHER ==
--- NOTE | 2023-09-09 23:09 | ED ---
Abdominal Pain HPI - General Chief Complaint: Abdominal Pain Stated Complaint: abnormal lab Time Seen by Provider: 09/09/23 22:45 Source: patient Mode of arrival: ambulatory Limitations: no limitations - History of Present Illness Initial Comments: 28-year-old male presenting to the ED with a chief complaint of abnormal labs. Patient seen by myself on 09/06/2023. At that time patient was presenting to the ED with complaints of flank pain, urgency, dysuria. Patient had a CT abdomen pelvis that revealed no evidence of acute finding however urine did show evidence of infection. Discharged home with prescription for Bactrim. Patient presenting today as urine culture resulted showing resistance to Bactrim. Since this time has reported no significant changes in his symptoms. Denies fever or chills. No chest pain or shortness of breath. No other complaints at this time. - Related Data Previous Rx's Medication Instructions Recorded Omeprazole 40 mg PO DAILY #14 capsule. 12/23/17 Ibuprofen [Motrin] 800 mg PO Q6HR #30 tab 12/19/21 Sulfamethox-Tmp 800-160Mg [Bactrim 1 each PO Q12HR 14 Days #28 tab 09/06/23 Ds] Allergies Allergy/AdvReac Type Severity Reaction Status Date / Time smith Allergy Anaphylaxis Verified 09/06/23 00:11 Review of Systems ROS Statement: Those systems with pertinent positive or pertinent negative responses have been documented in the HPI. ROS Other: All systems not noted in ROS Statement are negative. Past Medical History Past Medical History: No Reported History History of Any Multi-Drug Resistant Organisms: None Reported Past Surgical History: No Surgical Hx Reported Past Psychological History: No Psychological Hx Reported Smoking Status: Current every day smoker, Vaper Past Alcohol Use History: Daily Past Drug Use History: Marijuana General Exam Limitations: no limitations General appearance: alert, in no apparent distress Eye exam: Present: normal appearance Neck exam: Present: normal inspection Respiratory exam: Present: normal lung sounds bilaterally Cardiovascular Exam: Present: regular rate GI/Abdominal exam: Present: soft (Diffuse abdominal tenderness to palpation. No rebound guarding or rigidity. Bilateral CVA tenderness to percussion.) Neurological exam: Present: alert, oriented X3 Skin exam: Present: warm, dry Course Vital Signs 09/09/23 22:37 Temperature 97.9 F Pulse Rate 68 Respiratory 18 Rate Blood Pressure 122/47 O2 Sat by Pulse 97 Oximetry Medical Decision Making - Medical Decision Making Was pt. sent in by a medical professional or institution (, [facility], [facility], urgent care, hospital, or fci...) When possible be specific @ -No Did you speak to anyone other than the patient for history (EMS, parent, family, police, friend...)? What history was obtained from this source @ -No Did you review nursing and triage notes (agree or disagree)? Why? @ -I reviewed and agree with nursing and triage notes Were old charts reviewed (outside hosp., previous admission, EMS record, old EKG, old radiological studies, urgent care reports/EKG's, fci records)? Report findings @ -Reviewed urine culture. This is guiding antibiotic treatment. Differential Diagnosis (chest pain, altered mental status, abdominal pain women, abdominal pain men, vaginal bleeding, weakness, fever, dyspnea, syncope, headache, dizziness, GI bleed, back pain, seizure, CVA, palpatations, mental health, musculoskeletal)? @ -Differential Abdominal Pain Men: Appendicitis, cholecystitis, diverticulosis, ischemic bowel, pancreatitis, he patitis, UTI, gastroenteritis, AAA, incarcerated hernia, bowel obstruction, constipation, inflammatory bowel, hepatitis, peptic ulcer disease, splenic infarction, perforated viscus, testicular torsion, this is not meant to be an all-inclusive list EKG interpreted by me (3pts min.). @ -None X-rays interpreted by me (1pt min.). @ -None done CT interpreted by me (1pt min.). @ -None done U/S interpreted by me (1pt. min.). @ -None done What testing was considered but not performed or refused? (CT, X-rays, U/S, labs)? Why? @ -None What meds were considered but not given or refused? Why? @ -None Did you discuss the management of the patient with other professionals (professionals i.e. [facility] Mcdaniel, [facility], lab, RT, psych nurse, social group worker, stock preparation supervisor, teacher, financial aid officer, case supervisor)? Give summary @ -Case discussed with Dr. Fleming who accepts admission. Was smoking cessation discussed for >3mins.? @ -No Was critical care preformed (if so, how long)? @ -No Were there social determinants of health that impacted care today? How? (Homelessness, low income, unemployed, alcoholism, drug addiction, transportation, low edu. Level, literacy, decrease access to med. care, alf, rehab)? @ -No Was there de-escalation of care discussed even if they declined (Discuss DNR or withdrawal of care, Hospice)? DNR status @ -No What co-morbidities impacted this encounter? (DM, HTN, Smoking, COPD, CAD, Cancer, CVA, ARF, Chemo, Hep., AIDS, mental health diagnosis, sleep apnea, morbid obesity)? @ -None Was patient admitted / discharged? Hospital course, mention meds given and route, prescriptions, significant lab abnormalities, going to OR and other pertinent info. @ -Admission 28-year-old male seen by myself on 09/06/2023 and discharged with diagnosis of pyelonephritis with prescription for Bactrim presenting to the ED as urine cul ture showed resistance to Bactrim. Urine culture was reviewed. Patient positive for E. coli which was resistant to many antibiotics. Laboratory studies reviewed. CBC does show an elevated white blood cell count of 14.1. Chemistry panel largely unremarkable. Urine does still show evidence of in fection with leukocyte esterase and 23 white blood cells and occasional bacteria. Patient started on IV antibiotics and will be admitted with consult to Dr. Diamond. At this time vital signs stable afebrile. Undiagnosed new problem with uncertain prognosis? @ -No Drug Therapy requiring intensive monitoring for toxicity (Heparin, Nitro, Insulin, Cardizem)? @ -No Were any procedures done? @ -No Diagnosis/symptom? @ -Pyelonephritis, urine culture positive for E. coli Acute, or Chronic, or Acute on Chronic? @ -Acute Uncomplicated (without systemic symptoms) or Complicated (systemic symptoms)? @ -Uncomplicated Side effects of treatment? @ -No Exacerbation, Progression, or Severe Exacerbation? @ -No Poses a threat to life or bodily function? How? (Chest pain, [place], NM, pneumonia, PE, COPD, DKA, ARF, appy, cholecystitis, CVA, Diverticulitis, Homicidal, Suicidal, threat to staff... and all critical care pts) @ -Possibly however at this time unlikely. - Lab Data Result diagrams: 09/09/23 23:12 09/09/23 23:12 Lab Results 03/23/24 03/23/24 03/23/24 Range/Units 23:12 23:12 23:12 WBC 14.1 H (3.8-10.6) k/uL RBC 4.73 (4.30-5.90) m/uL Hgb 14.7 (13.0-17.5) gm/dL Hct 44.7 (39.0-53.0) % MCV 94.5 (80.0-100.0) fL MCH 31.0 (25.0-35.0) pg MCHC 32.9 (31.0-37.0) g/dL RDW 12.5 (11.5-15.5) % Plt Count 329 (150-450) k/uL MPV 7.6 Neutrophils % 55 % Lymphocytes % 33 % Monocytes % 6 % Eosinophils % 2 % Basophils % 1 % Neutrophils # 7.8 H (1.3-7.7) k/uL Lymphocytes # 4.6 (1.0-4.8) k/uL Monocytes # 0.8 (0-1.0) k/uL Eosinophils # 0.3 (0-0.7) k/uL Basophils # 0.2 (0-0.2) k/uL Sodium 139 (137-145) mmol/L Potassium 4.3 (3.5-5.1) mmol/L Chloride 106 (98-107) mmol/L Carbon Dioxide 21 L (22-30) mmol/L Anion Gap 12 mmol/L BUN 17 (9-20) mg/dL Creatinine 1.20 (0.66-1.25) mg/dL Est GFR (CKD-EPI)AfAm >90 (>60 ml/min/1.73 sqM) Est GFR (CKD-EPI)NonAf 81 (>60 ml/min/1.73 sqM) Glucose 92 (74-99) mg/dL Calcium 10.0 (8.4-10.2) mg/dL Total Bilirubin 0.2 (0.2-1.3) mg/dL AST 20 (17-59) U/L ALT 16 (4-49) U/L Alkaline Phosphatase 85 (38-126) U/L Total Protein 7.6 (6.3-8.2) g/dL Albumin 4.4 (3.5-5.0) g/dL Urine Color Colorless Urine Appearance Clear (Clear) Urine pH 6.0 (5.0-8.0) Ur Specific [place] 1.019 (1.001-1.035) Urine Protein Negative (Negative) Urine Glucose (UA) Negative (Negative) Urine Ketones Negative (Negative) Urine Blood Negative (Negative) Urine Nitrite Positive (Negative) Urine Bilirubin Negative (Negative) Urine Urobilinogen <2.0 (<2.0) mg/dL Ur Leukocyte Esterase Small H (Negative) Urine RBC <1 (0-5) /hpf Urine WBC 23 H (0-5) /hpf Ur Squamous Epith Cells <1 (0-4) /hpf Amorphous Sediment Rare H (None) /hpf Urine Bacteria Occasional H (None) /hpf Hyaline Casts 6 H (0-2) /lpf Urine Mucus Rare H (None) /hpf Disposition Clinical Impression: Pyelonephritis due to Escherichia coli Disposition: ADMITTED IP TO THIS HOSP Condition: Good Referrals: Meaghan Avila DO [Primary Care Provider] - 1-2 days Time of Disposition: 00:00
[2023-09-09 23:35] LABS: Basophils # (A) 0.2 k/uL (0-0.2); Basophils % (A) 1 %; Eosinophils # (A) 0.3 k/uL (0-0.7); Eosinophils % (A) 2 %; HCT 44.7 % (39.0-53.0); HGB 14.7 gm/dL (13.0-17.5); Lymphocytes # (A) 4.6 k/uL (1.0-4.8); Lymphocytes % (A) 33 %; MCHC 32.9 g/dL (31.0-37.0); MCV 94.5 fL (80.0-100.0); Mean Platelet Volume 7.6; Monocytes # (A) 0.8 k/uL (0-1.0); Monocytes % (A) 6 %; Neutrophils # (A) 7.8 k/uL (1.3-7.7); Neutrophils % (A) 55 %; Platelet Count 329 k/uL (150-450); RBC 4.73 m/uL (4.30-5.90); RDW 12.5 % (11.5-15.5); WBC 14.1 k/uL (3.8-10.6)
[2023-09-09 23:37] LABS: Amorphous Sediment,Urine Rare /hpf; Appearance,Urine Clear (Clear); Bacteria,Urine Occasional /hpf; Bilirubin,Urine Negative (Negative); Blood,Urine Negative (Negative); Color,Urine Colorless; Glucose,Urine (UA) Negative (Negative); Hyaline Casts,Urine 6 /lpf (0-2); Ketones,Urine Negative (Negative); Leukocyte Esterase,Urine Small (Negative); Mucus,Urine Rare /hpf; Nitrite,Urine Positive (Negative); Protein,Urine Negative (Negative); RBC,Urine <1 /hpf (0-5); Specific Gravity,Urine 1.019 (1.001-1.035); Squamous Epithelial Cell,Urine <1 /hpf (0-4); Urobilinogen,Urine <2.0 mg/dL (<2.0); WBC,Urine 23 /hpf (0-5)
[2023-09-09 23:44] LABS: ALT 16 U/L (4-49); AST 20 U/L (17-59); African American GFR (CKD) >90 (>60 ml/min/1.73 sqM); Albumin 4.4 g/dL (3.5-5.0); Alkaline Phosphatase 85 U/L (38-126); Anion Gap 12 mmol/L; Blood Urea Nitrogen 17 mg/dL (9-20); Carbon Dioxide 21 mmol/L (22-30); Chloride 106 mmol/L (98-107); Glucose 92 mg/dL (74-99); Non-African American GFR(CKD) 81 (>60 ml/min/1.73 sqM); Potassium 4.3 mmol/L (3.5-5.1); Sodium 139 mmol/L (137-145); Total Bilirubin 0.2 mg/dL (0.2-1.3); Total Protein 7.6 g/dL (6.3-8.2)
[2023-09-10] MEDS: ACETAMINOPHEN TAB 500 MG TAB PO STA (00:12)
[2023-09-10] MEDS: SODIUM CHLORIDE 0.9% 1,000 ML IV STA (00:14)
[2023-09-10] MEDS: KETOROLAC 15 MG/ML 1 ML VIAL IVP STA (00:15)
[2023-09-10] MEDS ORDERED: HYDROmorphone 1 MG/ML 1 ML SYRINGE IVP PRN (00:28)
[2023-09-10] MEDS ORDERED: HYDROmorphone 0.5 MG/0.5 ML SYRINGE IVP PRN (00:28)
[2023-09-10] MEDS ORDERED: ONDANSETRON 4 MG/2 ML VIAL IVP PRN (00:28)
[2023-09-10] MEDS ORDERED: NALOXONE 0.4 MG/ML 1 ML VIAL IV PRN (00:28)
[2023-09-10] MEDS: ERTAPENEM 1 GM in SODIUM CHLORIDE 0.9% 50 ML IVPB STA (01:23)
[2023-09-10] MEDS: ACETAMINOPHEN TAB 325 MG TAB PO PRN (11:37)
--- NOTE | 2023-09-10 13:02 | P.HPIM ---
History of Present Illness H&P Date: 09/10/23 History of present illness; patient is a 28-year-old gentleman with past medical history significant for psoriasis who recently presented to the ER for flank pain and increased urine frequency, at that time patient was diagnosed with UTI and was discharged on oral Bactrim. Patient had urine cultures done at the time which came back as being resistant to Bactrim. Patient was called back to the ER. Since patient being on Bactrim patient states that he has been doing well. Denies any fever or chills. There is no complaint nausea, vomiting abdominal pain. States flank pain has improved. Urinary frequency and dysuria is also improved. Initial lab work done in the ER showed WBC 14.1, hemoglobin 14.7, platelet count 329, sodium 130, potassium 4.3, BUN 17, creatinine 1.2, UA done is positive for nitrite, small amount of leukocyte Estrace, urine WBC 23 Patient admitted to internal medicine service REVIEW OF SYSTEMS: CONSTITUTIONAL: No fever, no malaise, no fatigue. HEENT: No recent visual problems or hearing problems. Denied any sore throat. CARDIOVASCULAR: No chest pain, orthopnea, PND, no palpitations, no syncope. PULMONARY: No shortness of breath, no cough, no hemoptysis. GASTROINTESTINAL: No diarrhea, no nausea, no vomiting, no abdominal pain. NEUROLOGICAL: No headaches, no weakness, no numbness. HEMATOLOGICAL: Denies any bleeding or petechiae. GENITOURINARY: Mentioned above MUSCULOSKELETAL/RHEUMATOLOGICAL: Denies any joint pain, swelling, or any muscle pain. ENDOCRINE: Denies any polyuria or polydipsia. The rest of the 14-point review of systems is negative. PHYSICAL EXAMINATION: GENERAL: The patient is alert and oriented x3, not in any acute distress. Well developed, well nourished. HEENT: Pupils are round and equally reacting to light. EOMI. No scleral icterus. No conjunctival pallor. Normocephalic, atraumatic. No pharyngeal erythema. No thyromegaly. CARDIOVASCULAR: S1 and S2 present. No murmurs, rubs, or gallops. PULMONARY: Chest is clear to auscultation, no wheezing or crackles. ABDOMEN: Soft, nontender, nondistended, normoactive bowel sounds. No palpable organomegaly. MUSCULOSKELETAL: No joint swelling or deformity. EXTREMITIES: No cyanosis, clubbing, or pedal edema. NEUROLOGICAL: Gross neurological examination did not reveal any focal deficits. SKIN: No rashes. Assessment and plan Acute pyelonephritis E. coli in urine History of psoriasis Monitor vital signs Monitor CBC Monitor CMP Results of urine cultures noted Continue IV fluids continue IV antibiotics, patient received 1 dose of ertapenem. ID consulted Labs and medication were reviewed.. Continue same treatment. Continue with symptomatic treatment. Resume home medication. Monitor labs and vitals. DVT and GI prophylaxis. Further recommendations as per clinical course of the patient Dictation was produced using [employer] dictation software. please excuse any grammatical, word or spelling errors. Past Medical History Past Medical History: No Reported History History of Any Multi-Drug Resistant Organisms: None Reported Past Surgical History: No Surgical Hx Reported Additional Past Surgical History / Comment(s): dental surgery Past Psychological History: No Psychological Hx Reported Smoking Status: Current every day smoker, Vaper Past Alcohol Use History: Daily Past Drug Use History: Marijuana Medications and Allergies Home Medications Medication Instructions Recorded Confirmed Type Ibuprofen [Motrin] 800 mg PO Q6HR #30 tab 12/19/21 Rx Adalimumab [Humira(Cf) Pen] 40 mg SQ WEEKLY 09/10/23 09/10/23 History Allergies Allergy/AdvReac Type Severity Reaction Status Date / Time smith Allergy Anaphylaxis Verified 09/06/23 00:11 Physical Exam Vitals: Vital Signs Temp Pulse Pulse Resp BP BP Pulse Ox 09/10/23 08:30 97.4 F L 60 16 105/64 99 09/10/23 08:01 68 16 148/90 98 09/10/23 05:07 97.0 F L 69 17 107/63 99 09/10/23 01:26 66 16 95/53 99 09/09/23 22:37 97.9 F 68 18 122/47 97 Intake and Output 09/09/23 09/10/23 09/10/23 22:59 06:59 14:59 Other: Voiding Method Toilet Weight 66.224 kg 66.224 kg Results CBC & Chem 7: 09/09/23 23:12 09/09/23 23:12 Labs: Abnormal Lab Results - Last 24 Hours (Table) 09/09/23 09/09/23 09/09/23 Range/Units 23:12 23:12 23:12 WBC 14.1 H (3.8-10.6) k/uL Neutrophils # 7.8 H (1.3-7.7) k/uL Carbon Dioxide 21 L (22-30) mmol/L Ur Leukocyte Esterase Small H (Negative) Urine WBC 23 H (0-5) /hpf Amorphous Sediment Rare H (None) /hpf Urine Bacteria Occasional H (None) /hpf Hyaline Casts 6 H (0-2) /lpf Urine Mucus Rare H (None) /hpf Thrombosis Risk Factor Assmnt - Choose All That Apply Other Risk Factors: No Other congenital or acquired thrombophilia - If yes, enter type in comment: No
--- NOTE | 2023-09-10 17:25 | P.CONS ---
History of Present Illness - Reason for Consult Consult date: 09/10/23 Pyelonephritis positive E. coli culture Requesting physician: Hakan De La Rosa - Chief Complaint Flank pain and burning urine x few days - History of Present Illness Patient is a 28-year-old male with a past medical history significant for smoking and marijuana use patient apparently was recently evaluated in the ER with complaint of bilateral flank pain urgency and dysuria patient did have a CT abdominal pelvis that was negative and the patient was subsequent discharged home on Bactrim DS cultures came back positive with ESBL E. coli for the patient was advised to come back to the hospital for IV antibiotic therapy he did receive a dose of Invanz was admitted and infectious was consulted for further management. Patient currently denies having any fever or any chills, patient is breathing comfortably patient denies having any chest pain or shortness with occasional cough no nausea no vomiting still complaining of some pain to the flank area he did have some burning of urine but no suprapubic pain and no diarrhea patient did have a white count of 14.1 creatinine is 1.20 UA has been positive Review of Systems Positive point and negatives has been mentioned in the HPI, complete review of systems was performed and all other systems are negative Past Medical History Past Medical History: No Reported History History of Any Multi-Drug Resistant Organisms: None Reported Past Surgical History: No Surgical Hx Reported Additional Past Surgical History / Comment(s): dental surgery Past Psychological History: No Psychological Hx Reported Smoking Status: Current every day smoker, Vaper Past Alcohol Use History: Daily Past Drug Use History: Marijuana Medications and Allergies Home Medications Medication Instructions Recorded Confirmed Type Ibuprofen [Motrin] 800 mg PO Q6HR #30 tab 12/19/21 09/10/23 Rx Adalimumab [Humira(Cf) Pen] 40 mg SQ Q14D 09/10/23 09/10/23 History Ertapenem [INVanz] 1 gm IVPB HS each 09/11/23 Rx Allergies Allergy/AdvReac Type Severity Reaction Status Date / Time smith Allergy Anaphylaxis Verified 09/10/23 13:06 Physical Exam Vitals: Vital Signs Temp Pulse Pulse Resp BP BP Pulse Ox 09/10/23 08:30 97.4 F L 60 16 105/64 99 09/10/23 08:01 68 16 148/90 98 09/10/23 05:07 97.0 F L 69 17 107/63 99 09/10/23 01:26 66 16 95/53 99 09/09/23 22:37 97.9 F 68 18 122/47 97 Intake and Output 09/09/23 09/10/23 09/10/23 22:59 06:59 14:59 Other: Voiding Method Toilet Weight 66.224 kg 66.224 kg GENERAL DESCRIPTION: Middle-aged male lying in bed, no distress. No tachypnea or accessory muscle of respiration use. HEENT: Shows Pallor , no scleral icterus. Oral mucous membrane is dry. No pharyngeal erythema or thrush NECK: Trachea central, no thyromegaly. LUNGS: Unlabored breathing. Clear to auscultation anteriorly. No wheeze or crackle. HEART: S1, S2, regular rate and rhythm. No loud murmur ABDOMEN: Soft, mild flank tenderness EXTREMITIES: No edema of feet. SKIN: No rash, no masses palpable. NEUROLOGICAL: The patient is awake, alert, oriented x3, mood and affect normal. Results CBC & Chem 7: 09/09/23 23:12 09/09/23 23:12 Labs: Abnormal Lab Results - Last 24 Hours (Table) 09/09/23 09/09/23 09/09/23 Range/Units 23:12 23:12 23:12 WBC 14.1 H (3.8-10.6) k/uL Neutrophils # 7.8 H (1.3-7.7) k/uL Carbon Dioxide 21 L (22-30) mmol/L Ur Leukocyte Esterase Small H (Negative) Urine WBC 23 H (0-5) /hpf Amorphous Sediment Rare H (None) /hpf Urine Bacteria Occasional H (None) /hpf Hyaline Casts 6 H (0-2) /lpf Urine Mucus Rare H (None) /hpf Assessment and Plan (1) Pyelonephritis due to Escherichia coli Status: Acute Code(s): N12 - TUBULO-INTERSTITIAL NEPHRITIS, NOT SPCF ACUTE OR CHRONIC; B96.20 - UNSP ESCHERICHIA COLI [facility] Code(s): 59282719 Plan: 1patient presented to hospital with flank pain dysuria did have elevated white count and urine has been positive for ESBL E. coli concerning for possible pyelonephritis CT was negative for any structural abnormality. 2we will start the patient on Invanz 1 g daily. 3he will need a midline and a 710-day course of IV Invanz on discharge patient mention unable to do it at home will need to arrange it at the infusion clinic in the outpatient setting. We will follow on clinical condition and cultures to further adjust medication if needed Thank you for this consultation we will follow the patient along with you Dictation was produced using [employer] dictation software. please excuse any grammatical, word or spelling errors. Time with Patient: Greater than 30
[2023-09-10] MEDS: ERTAPENEM 1 GM in SODIUM CHLORIDE 0.9% 50 ML IVPB SCH (21:34)
--- NOTE | 2023-09-11 13:27 | P.PN ---
Subjective Progress Note Date: 09/11/23 patient is a 28-year-old gentleman with past medical history significant for psoriasis who recently presented to the ER for flank pain and increased urine frequency, at that time patient was diagnosed with UTI and was discharged on oral Bactrim. Patient had urine cultures done at the time which came back as being resistant to Bactrim. Patient was called back to the ER. Since patient being on Bactrim patient states that he has been doing well. Denies any fever or chills. There is no complaint nausea, vomiting abdominal pain. States flank pain has improved. Urinary frequency and dysuria is also improved. Initial lab work done in the ER showed WBC 14.1, hemoglobin 14.7, platelet count 329, sodium 130, potassium 4.3, BUN 17, creatinine 1.2, UA done is positive for nitrite, small amount of leukocyte Estrace, urine WBC 23 Patient admitted to internal medicine service 09/10. Patient seen and examined. No acute issue overnight. REVIEW OF SYSTEMS: CONSTITUTIONAL: No fever, no malaise,. CARDIOVASCULAR: No chest pain, no palpitations, no syncope. PULMONARY: No shortness of breath, no cough, GASTROINTESTINAL: No diarrhea, no nausea, no vomiting, no abdominal pain. NEUROLOGICAL: No headaches, no weakness, PHYSICAL EXAMINATION: GENERAL: The patient is alert and oriented x3, not in any acute distress. Well developed, well nourished. HEENT: Pupils are round and equally reacting to light. EOMI. No scleral icterus. No conjunctival pallor. Normocephalic, atraumatic. No pharyngeal erythema. No thyromegaly. CARDIOVASCULAR: S1 and S2 present. No murmurs, rubs, or gallops. PULMONARY: Chest is clear to auscultation, no wheezing or crackles. ABDOMEN: Soft, nontender, nondistended, normoactive bowel sounds. No palpable organomegaly. MUSCULOSKELETAL: No joint swelling or deformity. EXTREMITIES: No cyanosis, clubbing, or pedal edema. NEUROLOGICAL: Gross neurological examination did not reveal any focal deficits. SKIN: No rashes. Assessment and plan Acute pyelonephritis E. coli in urine History of psoriasis Monitor vital signs Monitor CBC Monitor CMP Results of urine cultures noted Continue IV fluids Continue ertapenem ID following, recommend IV ertapenem at discharge Labs and medication were reviewed.. Continue same treatment. Continue with symptomatic treatment. Resume home medication. Monitor labs and vitals. DVT and GI prophylaxis. Further recommendations as per clinical course of the patient Dictation was produced using [employer] dictation software. please excuse any grammatical, word or spelling errors. Objective - Vital Signs Vital signs: Vital Signs Temp 98 F 09/11/23 08:00 Pulse 57 L 09/11/23 08:00 Resp 18 09/11/23 08:00 BP 121/62 09/11/23 08:00 Pulse Ox 99 09/11/23 08:00 FiO2 Intake & Output 09/10/23 09/11/23 09/11/23 18:59 06:59 18:59 Intake Total 240 Balance 240 Weight 66.224 kg Intake: Oral 240 Other: Voiding Method Toilet Toilet # Voids 1 - Labs CBC & Chem 7: 09/09/23 23:12 09/09/23 23:12 Labs: Microbiology - Last 24 Hours (Table) 09/10/23 00:05 Blood Culture - Preliminary Blood 09/10/23 00:25 Blood Culture - Preliminary Blood
--- NOTE | 2023-09-11 15:30 | P.PN ---
Subjective Progress Note Date: 09/11/23 Principal diagnosis: Reason for follow-up is ESBL E. coli pyelonephritis Patient is a 28-year-old male with a past medical history significant for smoking and marijuana use patient apparently was recently evaluated in the ER with complaint of bilateral flank pain urgency and dysuria patient did have a CT abdominal pelvis that was negative for any stone or hydronephrosis blood culture negative urine clinical positive with ESBL E. coli with the patient has been readmitted to the hospital patient did have elevated white count 14.1. On today's visit that is 09/11/2023,the patient denies any fever or any chills, patient is breathing comfortably on room air, the patient denies chest pain shortness of breath and no significant cough, patient denies abdominal pain s till complaining of pain to the bilateral flank area, no nausea vomiting or diarrhea. No new labs has been obtained today blood cultures were negative urine is growing gram-negative Objective - Vital Signs Vital signs: Vital Signs Temp 98 F 09/11/23 08:00 Pulse 57 L 09/11/23 08:00 Resp 18 09/11/23 08:00 BP 121/62 09/11/23 08:00 Pulse Ox 99 09/11/23 08:00 FiO2 Intake & Output 09/10/23 09/11/23 09/11/23 18:59 06:59 18:59 Intake Total 240 Balance 240 Weight 66.224 kg Intake: Oral 240 Other: Voiding Method Toilet Toilet # Voids 1 - Exam GENERAL DESCRIPTION: Middle-age male up in bed in no distress RESPIRATORY SYSTEM: Unlabored breathing , decreased breath sounds at bases HEART: S1 S2 regular rate and rhythm , ABDOMEN: Soft , flank tenderness EXTREMITIES: No edema feet - Labs CBC & Chem 7: 09/09/23 23:12 09/09/23 23:12 Labs: Microbiology - Last 24 Hours (Table) 09/10/23 00:05 Blood Culture - Preliminary Blood 09/10/23 00:25 Blood Culture - Preliminary Blood Assessment and Plan (1) Pyelonephritis due to Escherichia coli Current Visit: Yes Status: Acute Code(s): N12 - TUBULO-INTERSTITIAL NEPHRITIS, NOT SPCF ACUTE OR CHRONIC; B96.20 - UNSP ESCHERICHIA COLI THE CAUSE OF DISEASES CL[facility]SD [facility] SNOMED Code(s): 14892822 Plan: 1patient presented to hospital with flank pain dysuria did have elevated white count and urine has been positive for ESBL E. coli concerning for possible pyelonephritis CT was negative for any structural abnormality. 2patient to continue with Invanz 1 g daily we will order a midline for outpatient IV Invanz currently waiting for outpatient antibiotic arrangement before discharge discussed with admitting team Dictation was produced using [employer] dictation software. please excuse any grammatical, word or spelling errors. Time with Patient: Less than 30
[2023-09-11 20:05] VITALS: RESP 16
[2023-09-11] MEDS: MELATONIN 5 MG TABLET PO SCH (20:23)
[2023-09-12 01:57] VITALS: TEMP 97.8
[2023-09-12 09:22] VITALS: BP 114/69; PULSE 60
[2023-09-12] MEDS: ERTAPENEM 1 GM in SODIUM CHLORIDE 0.9% 50 ML IVPB STA (12:46)
--- NOTE | 2023-09-12 13:15 | P.DS ---
Providers Date of admission: 09/10/23 00:28 Expected date of discharge: 09/12/23 Attending physician: Prasad Fleming MD Consults: 09/10/23 00:28 Consult Physician Urgent Consulting Provider: Rena Diamond Consult Reason/Comments: Pyelonephritis (+) E.coli culture Do you want consulting provider notified?: Yes Primary care physician: Meaghan Avila Hospital Course: Discharge diagnoses; Acute pyelonephritis E. coli in urine History of psoriasis Hospital course; patient is a 28-year-old gentleman with past medical history significant for psoriasis who recently presented to the ER for flank pain and increased urine frequency, at that time patient was diagnosed with UTI and was discharged on oral Bactrim. Patient had urine cultures done at the time which came back as being resistant to Bactrim. Patient was called back to the ER. Since patient being on Bactrim patient states that he has been doing well. Denies any fever or chills. There is no complaint nausea, vomiting abdominal pain. States flank pain has improved. Urinary frequency and dysuria is also improved. Initial lab work done in the ER showed WBC 14.1, hemoglobin 14.7, platelet count 329, sodium 130, potassium 4.3, BUN 17, creatinine 1.2, UA done is positive for nitrite, small amount of leukocyte Estrace, urine WBC 23 Patient admitted to internal medicine service 09/10. Patient seen and examined. No acute issue overnight. 09/11. Patient seen and examined. ID recommends discharging patient on ertapenem. PHYSICAL EXAMINATION: GENERAL: The patient is alert and oriented x3, not in any acute distress. Well developed, well nourished. HEENT: Pupils are round and equally reacting to light. EOMI. No scleral icterus. No conjunctival pallor. Normocephalic, atraumatic. No pharyngeal erythema. No t hyromegaly. CARDIOVASCULAR: S1 and S2 present. No murmurs, rubs, or gallops. PULMONARY: Chest is clear to auscultation, no wheezing or crackles. ABDOMEN: Soft, nontender, nondistended, normoactive bowel sounds. No palpable organomegaly. MUSCULOSKELETAL: No joint swelling or deformity. EXTREMITIES: No cyanosis, clubbing, or pedal edema. NEUROLOGICAL: Gross neurological examination did not reveal any focal deficits. SKIN: No rashes. Dictation was produced using dragon dictation software. please excuse any grammatical, word or spelling errors. Patient Condition at Discharge: Good Plan - Discharge Summary Discharge Rx Participant: Yes New Discharge Prescriptions: New Ertapenem [INVanz] 1 gm IVPB HS each Continue Ibuprofen [Motrin] 800 mg PO Q6HR #30 tab Adalimumab [Humira(Cf) Pen] 40 mg SQ Q14D Discontinued Sulfamethox-Tmp 800-160Mg [Bactrim DS 800-160 mg] 1 tab PO Q12HR Discharge Medication List Ibuprofen [Motrin] 800 mg PO Q6HR #30 tab 12/19/21 [Rx] Adalimumab [Humira(Cf) Pen] 40 mg SQ Q14D 09/10/23 [History] Ertapenem [INVanz] 1 gm IVPB HS each 09/11/23 [Rx] Follow up Appointment(s)/Referral(s): Meaghan Avila DO [Primary Care Provider] - 1-2 days [facility] [NON-STAFF] - 09/13/23 9:00 am Rena Diamond MD [STAFF PHYSICIAN] - 09/20/23 1:30 pm Discharge Disposition: HOME SELF-CARE
--- NOTE | 2023-09-12 14:20 | P.PN ---
Subjective Progress Note Date: 09/12/23 Principal diagnosis: Reason for follow-up is ESBL E. coli pyelonephritis Patient is a 28-year-old male with a past medical history significant for smoking and marijuana use patient apparently was recently evaluated in the ER with complaint of bilateral flank pain urgency and dysuria patient did have a CT abdominal pelvis that was negative for any stone or hydronephrosis blood culture negative urine clinical positive with ESBL E. coli with the patient has been readmitted to the hospital patient did have elevated white count 14.1. On today's visit that is 09/12/2023,the patient remains to be afebrile, patient is on room air not requiring supplemental oxygen and denies any shortness of breath no chest pain or cough.Patient denies having any nausea or vomiting, no abdominal pain and no diarrhea still complaining of the pain to the flank area however urine symptoms has improved. No new labs has been repeated today urine culture with an E. coli ESBL resistant to Bactrim and Cipro Objective - Vital Signs Vital signs: Vital Signs Temp 97.8 F 09/12/23 08:00 Pulse 60 09/12/23 08:00 Resp 16 09/12/23 08:00 BP 114/69 09/12/23 08:00 Pulse Ox 99 09/12/23 08:00 FiO2 Intake & Output 09/11/23 09/12/23 09/12/23 18:59 06:59 18:59 Intake Total 476 Balance 476 Intake: Oral 476 Other: Voiding Method Toilet Toilet Toilet # Voids 3 1 - Exam GENERAL DESCRIPTION: Middle-age male up in bed in no distress RESPIRATORY SYSTEM: Unlabored breathing , decreased breath sounds at bases HEART: S1 S2 regular rate and rhythm , ABDOMEN: Soft , flank tenderness EXTREMITIES: No edema feet - Labs CBC & Chem 7: 09/09/23 23:12 09/09/23 23:12 Labs: Microbiology - Last 24 Hours (Table) 09/09/23 23:12 Urine Culture - Final Urine,Clean Catch Escherichia coli 09/10/23 00:05 Blood Culture - Preliminary Blood 09/10/23 00:25 Blood Culture - Preliminary Blood Assessment and Plan (1) Pyelonephritis due to Escherichia coli Status: Acute Code(s): N12 - TUBULO-INTERSTITIAL NEPHRITIS, NOT SPCF ACUTE OR CHRONIC; B96.20 - UNSP ESCHERICHIA COLI THE CAUSE OF DISEASES CLASSD ORLANDOR SNOMED Code(s): 69716647 Plan: 1patient presented to hospital with flank pain dysuria did have elevated white count and urine has been positive for ESBL E. coli concerning for possible pyelonephritis CT was negative for any structural abnormality. 2patient did got his midline significant mount of time has been spent with the outpatient infusion regarding his outpatient IV diabetic regimen as the patient insurance initially refused Invanz and was asking for to use oral Cipro or Bactrim DS to which the pathogen is resistant finally get approval he will get his dose today afterwards able to get discharge and follow-up in the outpatient clinic to finish his treatment Dictation was produced using [employer] dictation software. please excuse any grammatical, word or spelling errors. Time with Patient: Less than 30
[2023-09-13] MEDS ORDERED: ERTAPENEM 1 GM in SODIUM CHLORIDE 0.9% 50 ML IVPB SCH (21:00)
== END 2023-09-12 13:31 | disposition home or self-care (01) | DRG 463 ==
LOC: EC 22:31 → 4SSUR 09-10 00:28 → 6NMEDSUR 09-10 04:52
PROVIDERS: ADMIT Internal Medicine; ATTEND Internal Medicine
DX: N10 Acute pyelonephritis (principal); B96.20 Unspecified Escherichia coli [E. coli] as the cause of diseases classified elsewhere; L40.9 Psoriasis, unspecified; F17.290 Nicotine dependence, other tobacco product, uncomplicated; Z79.899 Other long term (current) drug therapy; Z79.1 Long term (current) use of non-steroidal anti-inflammatories (NSAID); Z16.29 Resistance to other single specified antibiotic
CPT/HCPCS: 36410; 36415; 76937; 80053; 81001; 85025; 87040; 87077; 87086; 87186; 96365; 96375; 99285